=== PATIENT | male | born 1945 | race Hispanic/Latino ===

== ENCOUNTER 2017-12-09 07:53 | Day surgery (SDC) | payer MEDICARE ==
[2017-12-02 14:20] VITALS: BMI 22.3
[2017-12-09] MEDS ORDERED: Propofol 10 mg/ml Inj (20 ML) ONE (08:16)
[2017-12-09] MEDS ORDERED: Lactated Ringer's 1,000 ML IV SCH (09:00)
[2017-12-09 09:09] VITALS: O2SAT 98
[2017-12-09 09:50] VITALS: BP 113/63; PULSE 64; RESP 18; TEMP 97.6
== END 2017-12-09 10:20 | disposition home or self-care (01) ==
LOC: ENDO 07:53
PROVIDERS: ATTEND Internal Medicine Gastroenterology
DX: K57.30 Diverticulosis of large intestine without perforation or abscess without bleeding (principal); R63.4 Abnormal weight loss; Z80.0 Family history of malignant neoplasm of digestive organs; I10 Essential (primary) hypertension; E78.5 Hyperlipidemia, unspecified; R79.89 Other specified abnormal findings of blood chemistry
CPT/HCPCS: 45378; J2001; J2704; J7040; J7120